=== PATIENT | female | born 2000 | race Caucasian/White ===

== ENCOUNTER 2019-01-30 23:35 | Emergency (ER) | payer BC ==
[2019-01-31] MEDS ORDERED: Lidocaine 1% INJ* 10 MG/ML 30 ML SDV INJ ONE (01:18)
--- NOTE | 2019-01-31 01:57 | ED ---
Laceration/Wound HPI - HPI Summary HPI Summary: 18-year-old male presents with left hand laceration today. She states she tried to catch a knife and ended up cutting her fingers. She is right-handed. Area continues to bleed. No foreign body in the wound. Tetanus up-to-date. Has no medical conditions. - History of Current Complaint Stated Complaint: CUTS FINGERS ON LT HAND PER PT Time Seen by Provider: 01/31/19 01:09 Pain Intensity: 3 - Allergy/Home Medications Allergies/Adverse Reactions: Allergies Allergy/AdvReac Type Severity Reaction Status Date / Time No Known Allergies Allergy Verified 01/30/19 23:45 PMH/Surg Hx/FS Hx/Imm Hx Endocrine/Hematology History: Denies: Hx Anticoagulant Therapy Respiratory History: Denies: Hx Asthma Infectious Disease History: No Infectious Disease History: Denies: Traveled Outside the [place] in Last 30 Days - Family History Known Family History: Positive: Non-Contributory - Social History Alcohol Use: None Substance Use Type: Reports: None Smoking Status (MU): Never Smoked Tobacco Review of Systems Negative: Fever Negative: Chest Pain Negative: Shortness Of Breath Positive: Other - left hand lacerations All Other Systems Reviewed And Are Negative: Yes Physical Exam Triage Information Reviewed: Yes Vital Signs On Initial Exam: Initial Vitals Temp Pulse Resp BP Pulse Ox 98.6 F 113 18 142/92 99 01/30/19 23:46 01/30/19 23:46 01/30/19 23:46 01/30/19 23:46 01/30/19 23:46 Vital Signs Reviewed: Yes Appearance: Positive: Well-Appearing Skin: Positive: Warm, Dry, Other - 1cm superficial on left index distal phalanx , 2cm by 1/2cm on left middle and ring distal phalanx Head/Face: Positive: Normal Head/Face Inspection Eyes: Positive: Normal, Conjunctiva Clear ENT: Positive: Pharynx normal Respiratory/Lung Sounds: Positive: Clear to Auscultation, Breath Sounds Present Cardiovascular: Positive: Normal, RRR Musculoskeletal: Positive: Strength/ROM Intact - left hand, Other - good pulses Neurological: Positive: Normal Psychiatric: Positive: Normal Procedures - Sedation Patient Received Moderate/Deep Sedation with Procedure: No - Laceration/Wound Repair 1 Location: Other - left middle finger Description: Linear Anesthesia: Digital Length, Depth and Shape: 2 cm x 0.5 cm Irrigated w/ Saline (ccs): 250 Closure: Single Layer Suture Type: Prolene Number of Sutures: 3 2 Location: Other - left 4th digit Description: Linear Anesthesia: Digital Length, Depth and Shape: 2 cm x 0.5 cm Irrigated w/ Saline (ccs): 250 Closure: Single Layer Suture Type: Prolene Number of Sutures: 3 3 Location: Other - left index finger Description: Linear Length, Depth and Shape: 1cm superficial Irrigated w/ Saline (ccs): 100 Closure: Skin Adhesive Diagnostics - Vital Signs Vital Signs Temp Pulse Resp BP Pulse Ox 01/30/19 23:46 98.6 F 113 18 142/92 99 - Laboratory Lab Statement: Any lab studies that have been ordered have been reviewed, and results considered in the medical decision making process. Laceration Repair Course/Dx - Course Course Of Treatment: 18-year-old male presents with left hand laceration today. She states she tried to catch a knife and ended up cutting her fingers. She is right-handed. Area continues to bleed. No foreign body in the wound. Tetanus up-to-date. Has no medical conditions. On exam has 1 cm superficial laceration to left index finger that glued. Has 2.0 cm x 0.5 cm lacerations of left 3rd and 4th digits. 3 4-0 prolene sutures in each laceration. Hemostasis achieved. done by RYAN Payan. told to keep area clean and dry. patient understand and agrees with plan. - Differential Dx Differental Diagnoses: Abrasion, Avulsion, Laceration - Clinical Impression Provider Diagnoses: Laceration of left hand Discharge ED - Sign-Out/Discharge Documenting (check all that apply): Patient Departure - Discharge Plan Condition: Good Disposition: HOME Patient Education Materials: Care For Your Stitches (ED) Referrals: No Primary Care Phys,NOPCP [Primary Care Provider] - Additional Instructions: Take Tylenol or ibuprofen for pain every 6 hours Keep area clean and dry for 24 hours Return to ED or primary in 8-10 days to have sutures removed Return to ED if develop signs of infection such as fever, spreading redness, or pus. - Billing Disposition and Condition Condition: GOOD Disposition: Home
[2019-01-31 02:11] VITALS: BP 0/0
== END 2019-01-31 02:09 | disposition home or self-care (01) ==
LOC: ED 23:35
DX: S61.213A Laceration without foreign body of left middle finger without damage to nail, initial encounter (principal); S61.215A Laceration without foreign body of left ring finger without damage to nail, initial encounter; S61.211A Laceration without foreign body of left index finger without damage to nail, initial encounter; W26.0XXA Contact with knife, initial encounter; Y92.9 Unspecified place or not applicable
CPT/HCPCS: 12002; 99282